=== PATIENT | male | born 1970 | race Caucasian/White ===

== ENCOUNTER 2019-01-10 05:44 | Day surgery (SDC) | payer BC ==
[2019-01-10] VITALS (10 sets, daily range): BP systolic 110–144; BP diastolic 58–82
[~2019-01-10] VITALS: Ht 182.9 cm; Wt 88.5 kg
[~2019-01-10 05:44] MED LIST: Cyclopentolate 1% Opth Sol 2ml ONE; Phenylephrine 2.5% Op 2ml Soln ONE; Proparacaine 0.5% Opth Soln 15ml ONE; Tropicamide 1% Opth 15ml Soln ONE
[2019-01-10] MEDS: Cyclopentolate 1% Opth Sol 2ml RIGHT EYE SCH ×3 (06:15→06:37)
[2019-01-10] MEDS: Phenylephrine 2.5% Op 2ml Soln RIGHT EYE SCH ×3 (06:15→06:37)
[2019-01-10] MEDS: Tropicamide 1% Opth 15ml Soln RIGHT EYE SCH ×3 (06:15→06:37)
[2019-01-10] MEDS ORDERED: NKM (06:27)
[2019-01-10] MEDS ORDERED: Proparacaine 0.5% Opth Soln 15ml RIGHT EYE SCH (07:00)
[2019-01-10] MEDS ORDERED: fentaNYL 100 mcg/2 mL IV ONE (07:09)
[2019-01-10] MEDS ORDERED: Midazolam 2mg/2ml Inj ONE (07:09)
[2019-01-10] MEDS ORDERED: Propofol 200mg/20ml IV ONE (07:09)
[2019-01-10] MEDS ORDERED: EPINEPHrine 1mg/1ml Amp ONE (07:09)
[2019-01-10] MEDS ORDERED: BSS 15ml BTL ONE (07:10)
[2019-01-10] MEDS ORDERED: Dexamethasone 4mg/ml vial ONE (07:10)
[2019-01-10] MEDS ORDERED: Goniotaire 2.5% Opth Soln - 15ml ONE (07:10)
[2019-01-10] MEDS ORDERED: Lidocaine 2% MPF 5ml Vial INJ ONE (07:10)
[2019-01-10] MEDS ORDERED: BSS 500ml btl ONE ×2 (07:10→09:15)
[2019-01-10] MEDS ORDERED: Pred Forte 1% Opth Susp 1ml ONE (07:10)
[2019-01-10] MEDS ORDERED: Polysporin Opth Oint 3.5gm ONE (07:11)
[2019-01-10] MEDS ORDERED: Tetracaine 0.5% Opth 4ml Soln ONE (07:11)
[2019-01-10] MEDS ORDERED: Povidone-Iodine 5% opth solution ONE (07:11)
[2019-01-10] MEDS ORDERED: Bupivacaine 0.75% 30ml vial INJ ONE ×2 (07:11→07:15)
[2019-01-10] MEDS ORDERED: Sodium Hyaluronate 10 mg/ml 0.85ml ONE (07:11)
[2019-01-10] MEDS ORDERED: Maxitrol Opth Susp 5ml ONE (07:12)
[2019-01-10] MEDS ORDERED: LR 1000ml ONE (07:16)
[2019-01-10] MEDS ORDERED: LR 1000ml 1,000 ML IVLG SCH (07:37)
--- NOTE | 2019-01-10 07:37 | Anethesia Preoperative Eval ---
Anesthesia Pre-op PMH/ROS General Date of Evaluation: Jan 10, 2019 Time of Evaluation: 07:34 Anesthesiologist: Nany ASA Score: ASA 2 Mallampati Score Class I : Soft palate, uvula, fauces, pillars visible Class II: Soft palate, uvula, fauces visible Class III: Soft palate, base of uvula visible Class IV: Only hard plate visible Mallampati Classification: Class II Surgeon: Alexx Diagnosis: R eye retinal detouchment Surgical Procedure: R eye PPV, scleral buckle Anesthesia History: none Family History: no anesthesia problems Allergies: Coded Allergies: PENICILLINS (Verified Allergy, Severe, Hives, 01/10/19) Patient NPO?: Yes Past Medical History Cardiovascular: Denies: HTN, CAD, [place], valve dz, arrhythmia, other Pulmonary: Denies: asthma, COPD, UMU, other Gastrointestinal/Genitourinary: Reports: GERD - mild; Denies: CRI, ESRD, other Neurologic/Psychiatric: Denies: dementia, CVA, depression/anxiety, TIA, other Endocrine: Denies: DM, hypothyroidism, steroids, other HEENT: Denies: cataract (L), cataract (R), glaucoma, [place] (L), [place] (R), other Hematology/Immune: Denies: anemia, DVT, bleeding disorder, other Musculoskeletal/Integumentary: Denies: OA, RA, DJD, DDD, edema, other PMH Narrative: as above PSxH Narrative: R knee surgery Anesthesia Pre-op Phys. Exam Physician Exam Last Vital Signs Date Time Temp Pulse Resp B/P (MAP) Pulse Ox O2 Delivery O2 Flow Rate FiO2 01/10/19 06:31 Room Air 01/10/19 06:17 97.0 59 18 144/77 96 Constitutional: NAD Neurologic: CN 2-12 intact Cardiovascular: RRR, no M/R/G Respiratory: CTA Gastrointestinal: S/NT/ND Airway Exam Mallampati Score: Class II MO: full Neck: flexible ROM: full Teeth: intact Dentures: no upper, no lower Anesthesia Pre-op A/P Labs see chart Studies Pre-op Studies: EKG - NSR Risk Assessment & Plan Assessment: ASA 2 Plan: GA with LMA Status Change Before Surgery: No Pre-Antibiotics Drug: none Kolby Ayon MD Jan 10, 2019 07:37
[2019-01-10] MEDS ORDERED: Hydromorphone 0.5mg/0.5ml inj IVP PRN (07:45)
[2019-01-10] MEDS ORDERED: Ketorolac 30mg Inj IV PRN (07:45)
[2019-01-10] MEDS ORDERED: DiphenhydrAMINE 50mg/ml Inj IVP PRN (07:45)
[2019-01-10] MEDS ORDERED: Meperidine 50mg/ml Inj(FOR RIGORS ONLY) IV PRN (07:45)
[2019-01-10] MEDS ORDERED: Kenalog-40 1ml Vial ONE (07:55)
--- NOTE | 2019-01-10 08:05 | Pre-Procedure Note/Attestation ---
Pre-Procedure Note/Attestation Complete Prior to Procedure Planned Procedure: right Procedure Narrative: RD OD Indications for Procedure Pre-Operative Diagnosis: RD OD Attestation I attest that I discussed the nature of the procedure; its benefits; risks and complications; and alternatives (and the risks and benefits of such alternatives ), prior to the procedure, with the patient (or the patient's legal plastic products sales representative). I attest that, if there was a reasonable possibility of needing a blood transfusion, the patient (or the patient's legal plastic products sales representative) was given the [facility] standardized written summary, pursuant to the [place] Blood Safety Act ([place] Health and Safety Code # 1645, as amended). I attest that I re-evaluated the patient just prior to the surgery and that there has been no change in the patient's H&P, except as documented below: James Coffey M.D., MD Jan 10, 2019 08:05
--- NOTE | 2019-01-10 08:07 | Operative Note - PDOC ---
Operative Note Operative Note Pre-op Diagnosis: History of RK with chronic inferior RRD OD Procedure: SB/PPV/RTO/PFO/EL/SO (5K) Post-op Diagnosis: Same Surgeon: Alexx Anesthesia: general Specimen: none Complications: none Condition: stable Estimated Blood Loss: none Drains: none Implant(s) used?: Yes - SB Indications for Procedure Location: [facility] [place] Pre-operative Diagnosis: 1. Chronic inferior rhegmatogenous retinal detachment, , macula-involving, but fovea sparing, RIGHT EYE 2. Early inferior PVR, RIGHT EYE 3. History of myopia s/p RK, RIGHT EYE Post-operative Diagnosis: Same Procedure: Scleral buckle (41 band, 72 sleeve), pars plans vitrectomy (23 gauge ), membrane peel, posterior retinotomy, removal of subretinal PVR, infusion of PFO, endolaser, air-fluid exchange, infusion of SO (5K), RIGHT EYE Surgeon: James Coffey M.D. Anesthesia: General anesthesia Complications: None Indications for the procedure: The patient has inferior, fovea-sparing retinal detachment and presents for surgery after review of the risks, benefits, alternative and signing informed consent into the medical chart. Description of Procedure Procedure performed: The patient was met in the pre-op area where informed consent was reviewed. The operative eye was verified, marked and dilated. The patient was transferred to the operative suite, where cardiopulmonary monitoring was established and general anesthesia was administered without complications. The eye was prepped and draped in sterile ophthalmic fashion. A lid speculum was placed. Under direct visualization, the conjunctiva was opened and the quadrants were dissected. The rectus muscles were isolated and hooked with silk sutures. The quadrants were inspected and no scleral defects were noted. The 41 band was encircled around the globe with its ends attached in the superonasal quadrant with the 72 sleeve. The buckle was sutured to the sclera with 5-0 nylon sutures at 4mm posterior to the muscle insertions in all 4 quadrants. The buckle was pulled flush against the globe, then 10mm beyond flush. The anterior chamber was tapped to reduce the intraocular pressure. The buckle ends were trimmed. Under microscope visualization, the 23 gauge infusion line was placed 4 millimeters inferotemporally. After visualization of the tip in the vitreous cavity, the infusion line was turned on. The superotemporal and superonasal cannulas were placed. Under BIOM visualization, peripheral and core vitrectomy was performed; PVD was induced and the vitreous was shaved from the periphery meticulously. Of note, there was inferior vitreous hemorrhage in the vitreous base and lattice with breaks inferior and lattice superior. The retina became less bullous, but remained elevated despite shaving. Staining revealed pre-retinal vitreous/ wrinkling along the mid-periphery inferiorly; the pre-retinal vitreous was scant and was brushed away. There was subretinal band/PVR that warranted RTO inferiorly. The band was removed with forceps. Subsequently, the retinal traction was released and the retina started flattened as the dense SRF was removed. Further vitrectomy was performed up to the edges of the retinal tears. The cornea was edematous and required scraping of the epithelium to allow adequate visualization. PFO was infused into the eye to reattached the retina; Endolaser was applied to all retinal tears, the retinotomy and along the shelf of the buckle indentation. PFO-Air exchange was performed and silicone oil was infused into the eye. The cannulas and infusion line were removed and sutured with 7-0 vicryl sutures. The eye maintained normal intraocular pressure. The stay sutures were removed, the conjunctiva was repositioned and closed with 5-0 plain gut sutures. Subconjunctival vancomycin and dexamethasone were administered. The lid speculum was removed. The eye was cleaned of prep and drape. Atropine drop and Maxitrol ointment was applied. A pressure patch was placed. The patient was turned over to the anesthesia team, extubated and transferred in stable condition to the PACU. James Coffey M.D., MD Jan 10, 2019 08:07
--- NOTE | 2019-01-10 10:20 | Immediate Post-Op Evaluation ---
Immediate Post-Op Evalulation Immediate Post-Op Evalulation Procedure: R eye PPV fluid to gas exchange, laser treatment, scleral buckle Date of Evaluation: Jan 10, 2019 Time of Evaluation: 10:19 IV Fluids: 1000 Blood Products: none Estimated Blood Loss: min Urinary Output: none Blood Pressure Systolic: 120 Blood Pressure Diastolic: 73 Pulse Rate: 73 Respiratory Rate: 20 O2 Sat by Pulse Oximetry: 99 Temperature (Fahrenheit): 97.5 Pain Score (1-10): 1 Nausea: No Vomiting: No Complications none Patient Status: reacts, patent, none Hydration Status: adequate Kolby Ayon MD Jan 10, 2019 10:20
--- NOTE | 2019-01-10 13:08 | 48 Hour Post Anesthesia Eval ---
Post Anesthesia Evaluation Procedure: R eye PPV fluid to gas exchange, laser treatment, scleral buckle Date of Evaluation: Jan 10, 2019 Time of Evaluation: 13:06 Blood Pressure Systolic: 124 0: 82 Pulse Rate: 76 Respiratory Rate: 20 Temperature (Fahrenheit): 97.6 O2 Sat by Pulse Oximetry: 98 Airway: patent Nausea: No Vomiting: No Pain Intensity: 2 Hydration Status: adequate Cardiopulmonary Status: stable Mental Status/LOC: patient returned to baseline Follow-up Care/Observations: n/a Post-Anesthesia Complications: none Follow-up care needed: ready to discharge Kolby Ayon MD Jan 10, 2019 13:08
== END 2019-01-10 12:15 | disposition home or self-care (01) ==
LOC: SUR 05:44
DX: H33.001 Unspecified retinal detachment with retinal break, right eye (principal); K21.9 Gastro-esophageal reflux disease without esophagitis; Z88.0 Allergy status to penicillin
CPT/HCPCS: 67108; J1100; J2250; J2704; J3010; J3301; J3370; J3490; 94003; 94150